=== PATIENT | female | born 1955 | race Caucasian/White ===

== ENCOUNTER 2024-07-26 18:23 | Inpatient (IN) | payer MEDICARE, OTHER ==
[~2024-07-26] VITALS: Ht 170.2 cm; Wt 59.0 kg
[2024-07-26] MEDS ORDERED: GLIM4TAB7 PO (19:07)
[2024-07-26] MEDS ORDERED: ATOR20TA PO (19:07)
[2024-07-26] MEDS ORDERED: PIOG15TA8 PO (19:07)
[2024-07-26] MEDS ORDERED: GABA-530 PO (19:07)
[2024-07-26] MEDS ORDERED: LOSA-415 PO (19:07)
[2024-07-26] MEDS ORDERED: HYDR-3686 PO (19:07)
[2024-07-26] MEDS ORDERED: MONT-40 PO (19:07)
[2024-07-26] MEDS ORDERED: FERR325T28 PO (19:07)
[2024-07-26] MEDS ORDERED: SUMA25TA35 PO (19:07)
[2024-07-26] MEDS ORDERED: METF-436 PO (19:07)
[2024-07-26] MEDS ORDERED: FAMO20TA8 PO (19:07)
[2024-07-26] MEDS ORDERED: MELO-102 PO (19:07)
[2024-07-26] MEDS: normal saline 1000ml 1,000 ML IV ONE (19:15)
[2024-07-26 19:16] LABS: BASOPHILS % (AUTO) 0.3 % (0-1); EOSINOPHILS # (AUTO) 0.1 X10'3 (0-0.9); HEMATOCRIT 24.8 % (35.0-45.0); HEMOGLOBIN 8.3 g/dl (12.0-16.0); LYMPHOCYTES # (AUTO) 4.1 X10'3 (1.1-4.8); LYMPHOCYTES % (AUTO) 35.3 % (21-51); MEAN CORPUSCULAR HGB CONC 33.3 g/dL (33.0-36.5); MEAN CORPUSCULAR VOLUME 90.2 FL (78-98); MEAN PLATELET VOLUME 9.2 FL (7.4-10.4); MONOCYTES # (AUTO) 1.4 X10'3 (0-0.9); MONOCYTES % (AUTO) 12.4 % (2-12); NEUTROPHILS # (AUTO) 5.9 X10'3 (1.8-7.7); PLATELET COUNT 238 X10'3 (140-440); RED BLOOD COUNT 2.75 X10'6 (4.20-5.60); RED CELL DISTRIBUTION WIDTH 14.4 % (11.5-14.5); WHITE BLOOD COUNT 11.6 X10'3 (4.5-11.0)
[2024-07-26 19:24] LABS: INR 1.1 INR; PROTHROMBIN TIME 11.3 SECONDS (9.0-12.0)
[2024-07-26 19:28] LABS: ALANINE AMINOTRANSFERASE 22 U/L (12-78); ALBUMIN 2.9 G/DL (3.4-5.0); ALBUMIN/GLOBULIN RATIO 1.3 (1.1-1.5); ALKALINE PHOSPHATASE 48 IU/L (46-116); ANION GAP 9 (8-16); ASPARTATE AMINO TRANSFERASE 17 U/L (10-37); BILIRUBIN,TOTAL 0.7 MG/DL (0.1-1.0); BLOOD UREA NITROGEN 47 MG/DL (7-18); BUN/CREATININE RATIO 68.1 (10.0-20.0); CALCIUM 8.5 MG/DL (8.5-10.1); CHLORIDE 105 MMOL/L (99-107); CREATININE 0.69 MG/DL (0.40-0.90); GLUCOSE 160 MG/DL (70-104); POTASSIUM 3.8 MMOL/L (3.5-5.1); SODIUM 138 MMOL/L (135-145); TOTAL CARBON DIOXIDE 24.3 MMOL/L (24-32); TOTAL PROTEIN 5.2 G/DL (6.4-8.2); eCRCL 73 ML/MIN; eGFR 85 ML/MIN
[2024-07-26 19:40] LABS: PRO BRAIN NATRIURETIC PEPTIDE 109 PG/ML (0-125)
[2024-07-26] MEDS ORDERED: hydrOXYzine 25 MG tablet PO PRN (21:55)
[2024-07-26] MEDS ORDERED: SUMAtriptan 25 MG tablet PO PRN (21:55)
[2024-07-26] MEDS ORDERED: mag hydrox/Alum hydrox/simeth 30ml oral suspension PO PRN (22:00)
[2024-07-26] MEDS ORDERED: ondansetron/PF 4mg/2ml inj IV PRN (22:00)
[2024-07-26] MEDS ORDERED: glucagon, human recombinant 1mg kit SUBCUT PRN (22:00)
[2024-07-26] MEDS ORDERED: potassium Cl 20 mEq SR tablet PO PRN ×2 (22:00)
[2024-07-26] MEDS ORDERED: magnesium sulf-water 4G/100mL 100 ML IV PRN (22:00)
[2024-07-26] MEDS ORDERED: DEXTROSE 15 GM of carb/4 tabs (each vial/BOTTLE has 4 tablets) PO PRN ×2 (22:00)
[2024-07-26] MEDS ORDERED: magnesium hydroxide 30ml (MOM) UD suspension PO PRN (22:00)
[2024-07-26] MEDS ORDERED: potassium Cl 40MEQ/1/2NS 520ml 520 ML IV PRN (22:00)
[2024-07-26] MEDS ORDERED: pantoprazole 40mg IV 80 MG in normal saline 100ml IV soln 100 ML IV ONE (22:00)
[2024-07-26] MEDS ORDERED: dextrose 50%-water 50ml dispensing syringe IV PRN ×2 (22:00)
[2024-07-26] MEDS ORDERED: magnesium sulf-water 2g/50mL 50 ML IV PRN (22:00)
[2024-07-26 22:22] LABS: HEMOGLOBIN A1C 6.9 % (4.5-6.2)
[2024-07-26 22:23] LABS: HEMOGLOBIN 7.2 g/dl (12.0-16.0); MEAN CORPUSCULAR HEMOGLOBIN 30.4 PG (27.0-31.0); MEAN CORPUSCULAR HGB CONC 34.1 g/dL (33.0-36.5); MEAN PLATELET VOLUME 8.4 FL (7.4-10.4); PLATELET COUNT 199 X10'3 (140-440); RED BLOOD COUNT 2.37 X10'6 (4.20-5.60); RED CELL DISTRIBUTION WIDTH 14.3 % (11.5-14.5); WHITE BLOOD COUNT 11.4 X10'3 (4.5-11.0)
[2024-07-26 22:33] LABS: HEMATOCRIT 21.1 % (35.0-45.0)
[2024-07-26 22:50] LABS: % IRON SATURATION 97 % (11-46); IRON 142 UG/DL (49-151); TOTAL IRON BINDING CAPACITY 147 UG/DL (259-388)
[2024-07-26 23:00] VITALS: BP 124/73; PULSE 79; RESP 17; RESP 18; TEMP 98; O2SAT 98; O2SAT 99
[2024-07-26] MEDS: pantoprazole 40 MG vial IV ONE (23:20)
[2024-07-26] MEDS: normal saline 1000ml 1,000 ML IV SCH (23:20)
[2024-07-26] MEDS: pantoprazole 40MG/NS 100ML BAG 100 ML IV SCH (23:21)
[2024-07-27] VITALS (8 sets, daily range): BP systolic 110–144; BP diastolic 56–75; PULSE 65–82; RESP 15–22; TEMP 97–99.3; O2SAT 94–100
[2024-07-27] MEDS ORDERED: GLIP10TA18 PO (01:55)
[2024-07-27 03:40] LABS: BASOPHILS % (AUTO) 0.5 % (0-1); EOSINOPHILS # (AUTO) 0.2 X10'3 (0-0.9); EOSINOPHILS % (AUTO) 2.1 % (0-6); LYMPHOCYTES # (AUTO) 4.2 X10'3 (1.1-4.8); LYMPHOCYTES % (AUTO) 42.4 % (21-51); MEAN CORPUSCULAR HEMOGLOBIN 31.2 PG (27.0-31.0); MEAN CORPUSCULAR HGB CONC 34.7 g/dL (33.0-36.5); MEAN CORPUSCULAR VOLUME 89.7 FL (78-98); MEAN PLATELET VOLUME 8.9 FL (7.4-10.4); MONOCYTES # (AUTO) 1.2 X10'3 (0-0.9); MONOCYTES % (AUTO) 11.5 % (2-12); NEUTROPHILS # (AUTO) 4.4 X10'3 (1.8-7.7); NEUTROPHILS % (AUTO) 43.5 % (42-75); PLATELET COUNT 187 X10'3 (140-440); RED BLOOD COUNT 2.26 X10'6 (4.20-5.60); RED CELL DISTRIBUTION WIDTH 14.8 % (11.5-14.5)
[2024-07-27 03:42] LABS: HEMATOCRIT 20.3 % (35.0-45.0)
[2024-07-27 03:55] LABS: ALANINE AMINOTRANSFERASE 17 U/L (12-78); ALBUMIN 2.3 G/DL (3.4-5.0); ALKALINE PHOSPHATASE 38 IU/L (46-116); ANION GAP 6 (8-16); ASPARTATE AMINO TRANSFERASE 15 U/L (10-37); BILIRUBIN,TOTAL 0.4 MG/DL (0.1-1.0); BLOOD UREA NITROGEN 39 MG/DL (7-18); BUN/CREATININE RATIO 51.3 (10.0-20.0); CALCIUM 7.7 MG/DL (8.5-10.1); CHLORIDE 108 MMOL/L (99-107); CREATININE 0.76 MG/DL (0.40-0.90); GLUCOSE 245 MG/DL (70-104); MAGNESIUM 1.4 MG/DL (1.5-2.4); POTASSIUM 3.9 MMOL/L (3.5-5.1); SODIUM 138 MMOL/L (135-145); TOTAL CARBON DIOXIDE 24.5 MMOL/L (24-32); TOTAL PROTEIN 4.7 G/DL (6.4-8.2); eCRCL 66 ML/MIN; eGFR 76 ML/MIN
[2024-07-27 07:24] LABS: HEMOGLOBIN 7.4 g/dl (12.0-16.0); MEAN CORPUSCULAR HEMOGLOBIN 30.4 PG (27.0-31.0); MEAN CORPUSCULAR HGB CONC 34.1 g/dL (33.0-36.5); MEAN CORPUSCULAR VOLUME 89.3 FL (78-98); MEAN PLATELET VOLUME 9.3 FL (7.4-10.4); PLATELET COUNT 231 X10'3 (140-440); RED BLOOD COUNT 2.43 X10'6 (4.20-5.60); RED CELL DISTRIBUTION WIDTH 14.3 % (11.5-14.5); WHITE BLOOD COUNT 11.8 X10'3 (4.5-11.0)
[2024-07-27 07:35] LABS: HEMATOCRIT 21.7 % (35.0-45.0)
[2024-07-27] MEDS: K and/or MAG REPLACEMENT MC SCH (08:00)
[2024-07-27] MEDS: famotidine 20mg tablet PO SCH (09:47)
[2024-07-27] MEDS: atorvastatin 20mg tablet PO SCH (09:47)
[2024-07-27] MEDS: gabapentin 100mg capsule PO SCH (09:47)
[2024-07-27] MEDS: docusate sod 100mg capsule PO SCH (09:47)
[2024-07-27] MEDS: losartan 50mg tablet PO SCH (09:47)
[2024-07-27] MEDS: montelukast 10mg tablet PO SCH (09:47)
[2024-07-27] MEDS: ferrous sulfate 325mg tablet PO SCH (09:47)
[2024-07-27] MEDS: MELOXICAM 7.5 MG TABLET PO SCH (09:48)
[2024-07-27] MEDS: INSULIN LISPRO 100 UNIT/ML INSULN.PEN MULTI-DOSE SQ SCH (09:58)
[2024-07-27] MEDS: magnesium Cl slow-release 64mg tablet PO PRN (15:20)
[2024-07-27 19:32] LABS: HEMOGLOBIN 7.4 g/dl (12.0-16.0); MEAN CORPUSCULAR HEMOGLOBIN 30.9 PG (27.0-31.0); MEAN CORPUSCULAR HGB CONC 34.5 g/dL (33.0-36.5); MEAN CORPUSCULAR VOLUME 89.4 FL (78-98); PLATELET COUNT 240 X10'3 (140-440); RED BLOOD COUNT 2.41 X10'6 (4.20-5.60); RED CELL DISTRIBUTION WIDTH 14.6 % (11.5-14.5); WHITE BLOOD COUNT 14.1 X10'3 (4.5-11.0)
[2024-07-27 19:39] LABS: HEMATOCRIT 21.5 % (35.0-45.0)
[2024-07-27] MEDS: insulin glargine (Lantus) pen - multi-dose SQ SCH (22:07)
[2024-07-28] VITALS (21 sets, daily range): BP systolic 89–151; BP diastolic 42–109; PULSE 56–86; RESP 12–21; TEMP 97.5–98.7; O2SAT 91–100
[2024-07-28 06:00] LABS: BASOPHILS % (AUTO) 0.6 % (0-1); EOSINOPHILS # (AUTO) 0.7 X10'3 (0-0.9); LYMPHOCYTES # (AUTO) 3.1 X10'3 (1.1-4.8); MEAN CORPUSCULAR HEMOGLOBIN 31.1 PG (27.0-31.0); MEAN CORPUSCULAR HGB CONC 34.6 g/dL (33.0-36.5); MEAN CORPUSCULAR VOLUME 89.9 FL (78-98); MEAN PLATELET VOLUME 9.2 FL (7.4-10.4); MONOCYTES # (AUTO) 0.9 X10'3 (0-0.9); NEUTROPHILS # (AUTO) 3.6 X10'3 (1.8-7.7); NEUTROPHILS % (AUTO) 43.4 % (42-75); PLATELET COUNT 176 X10'3 (140-440); RED BLOOD COUNT 1.97 X10'6 (4.20-5.60); RED CELL DISTRIBUTION WIDTH 14.3 % (11.5-14.5); WHITE BLOOD COUNT 8.3 X10'3 (4.5-11.0)
[2024-07-28 06:05] LABS: HEMOGLOBIN 6.1 g/dl (12.0-16.0)
[2024-07-28 06:06] LABS: HEMATOCRIT 17.7 % (35.0-45.0)
[2024-07-28 06:17] LABS: ALANINE AMINOTRANSFERASE 21 U/L (12-78); ALBUMIN 2.5 G/DL (3.4-5.0); ALBUMIN/GLOBULIN RATIO 1.2 (1.1-1.5); ALKALINE PHOSPHATASE 40 IU/L (46-116); ANION GAP 6 (8-16); ASPARTATE AMINO TRANSFERASE 15 U/L (10-37); BILIRUBIN,TOTAL 0.3 MG/DL (0.1-1.0); BLOOD UREA NITROGEN 18 MG/DL (7-18); CALCIUM 7.8 MG/DL (8.5-10.1); CHLORIDE 111 MMOL/L (99-107); CREATININE 0.58 MG/DL (0.40-0.90); GLUCOSE 177 MG/DL (70-104); MAGNESIUM 1.8 MG/DL (1.5-2.4); POTASSIUM 4.1 MMOL/L (3.5-5.1); SODIUM 141 MMOL/L (135-145); TOTAL CARBON DIOXIDE 24.5 MMOL/L (24-32); TOTAL PROTEIN 4.6 G/DL (6.4-8.2); eCRCL 86 ML/MIN; eGFR > 90 ML/MIN
[2024-07-28] MEDS: acetaminophen 325mg tablet PO PRN (08:28)
[2024-07-28] MEDS ORDERED: LIDOcaine 2% Viscous 15ml cup ONE (10:42)
[2024-07-28] MEDS ORDERED: simethicone 40mg/0.6ml oral drops 30ml ONE (11:00)
[2024-07-28] MEDS ORDERED: MIDAZolam 1 MG/ML 5ML VIAL ONE ×2 (11:04→11:32)
[2024-07-28] MEDS ORDERED: fentaNYL/PF 50MCG/1 ML 2ML syringe ONE (11:04)
[2024-07-28] MEDS ORDERED: epiNEPHrine 0.1mg/ml 10ml syringe ONE (11:15)
[2024-07-28] MEDS ORDERED: glycopyrrolate 0.2mg/ml inj ONE (11:27)
[2024-07-28] MEDS ORDERED: ondansetron/PF 4mg/2ml inj ONE (11:49)
[2024-07-28 17:13] LABS: HEMOGLOBIN 9.2 g/dl (12.0-16.0); MEAN CORPUSCULAR HEMOGLOBIN 30.2 PG (27.0-31.0); MEAN CORPUSCULAR HGB CONC 34.1 g/dL (33.0-36.5); MEAN CORPUSCULAR VOLUME 88.6 FL (78-98); MEAN PLATELET VOLUME 9.3 FL (7.4-10.4); PLATELET COUNT 215 X10'3 (140-440); RED BLOOD COUNT 3.05 X10'6 (4.20-5.60); RED CELL DISTRIBUTION WIDTH 14.7 % (11.5-14.5); WHITE BLOOD COUNT 11.7 X10'3 (4.5-11.0)
[2024-07-28] MEDS: pantoprazole 40 MG vial IV SCH (19:35)
[2024-07-29 02:00] VITALS: BP 116/54; PULSE 65; RESP 14; TEMP 97.6; O2SAT 97
[2024-07-29 06:38] LABS: ALANINE AMINOTRANSFERASE 23 U/L (12-78); ALBUMIN 2.6 G/DL (3.4-5.0); ALBUMIN/GLOBULIN RATIO 1.1 (1.1-1.5); ALKALINE PHOSPHATASE 47 IU/L (46-116); ANION GAP 7 (8-16); ASPARTATE AMINO TRANSFERASE 16 U/L (10-37); BILIRUBIN,TOTAL 0.4 MG/DL (0.1-1.0); BLOOD UREA NITROGEN 10 MG/DL (7-18); BUN/CREATININE RATIO 15.4 (10.0-20.0); CALCIUM 7.7 MG/DL (8.5-10.1); CHLORIDE 110 MMOL/L (99-107); CREATININE 0.65 MG/DL (0.40-0.90); GLUCOSE 158 MG/DL (70-104); MAGNESIUM 1.7 MG/DL (1.5-2.4); POTASSIUM 3.7 MMOL/L (3.5-5.1); SODIUM 140 MMOL/L (135-145); TOTAL CARBON DIOXIDE 23.3 MMOL/L (24-32); TOTAL PROTEIN 4.9 G/DL (6.4-8.2); eCRCL 77 ML/MIN; eGFR > 90 ML/MIN
[2024-07-29 06:51] LABS: BASOPHILS % (AUTO) 0.5 % (0-1); EOSINOPHILS # (AUTO) 0.6 X10'3 (0-0.9); EOSINOPHILS % (AUTO) 6.5 % (0-6); HEMATOCRIT 26.1 % (35.0-45.0); LYMPHOCYTES # (AUTO) 2.9 X10'3 (1.1-4.8); LYMPHOCYTES % (AUTO) 34.3 % (21-51); MEAN CORPUSCULAR HEMOGLOBIN 30.4 PG (27.0-31.0); MEAN CORPUSCULAR HGB CONC 34.3 g/dL (33.0-36.5); MEAN CORPUSCULAR VOLUME 88.5 FL (78-98); MEAN PLATELET VOLUME 9.5 FL (7.4-10.4); MONOCYTES # (AUTO) 0.9 X10'3 (0-0.9); NEUTROPHILS # (AUTO) 4.2 X10'3 (1.8-7.7); NEUTROPHILS % (AUTO) 48.7 % (42-75); PLATELET COUNT 189 X10'3 (140-440); RED BLOOD COUNT 2.95 X10'6 (4.20-5.60); RED CELL DISTRIBUTION WIDTH 14.6 % (11.5-14.5); WHITE BLOOD COUNT 8.6 X10'3 (4.5-11.0)
[2024-07-29 09:50] VITALS: BP_SYST 131
[2024-07-29] MEDS ORDERED: PANT40TA54 PO (11:39)
[2024-07-29] MEDS ORDERED: FERR324T4 PO (14:48)
== END 2024-07-29 16:32 | disposition home or self-care (01) | DRG 377 ==
LOC: ER 18:24 → ED HOLD 19:30 → PCU 3S 22:53
PROVIDERS: ADMIT Internal Medicine Critical Care Medicine; ATTEND Internal Medicine
PROC: 3E0G8GC Introduction of Other Therapeutic Substance into Upper GI, Via Natural or Artificial Opening Endoscopic (ICD-10-PCS; principal; 2024-07-28)
PROC: 0DB78ZX Excision of Stomach, Pylorus, Via Natural or Artificial Opening Endoscopic, Diagnostic (ICD-10-PCS; 2024-07-28)
PROC: 0W3P8ZZ Control Bleeding in Gastrointestinal Tract, Via Natural or Artificial Opening Endoscopic (ICD-10-PCS; 2024-07-28)
PROC: 30233N1 Transfusion of Nonautologous Red Blood Cells into Peripheral Vein, Percutaneous Approach (ICD-10-PCS; 2024-07-28)
DX: K26.4 Chronic or unspecified duodenal ulcer with hemorrhage (principal); R57.1 Hypovolemic shock; D62 Acute posthemorrhagic anemia; F41.9 Anxiety disorder, unspecified; I10 Essential (primary) hypertension; E11.9 Type 2 diabetes mellitus without complications; E88.09 Other disorders of plasma-protein metabolism, not elsewhere classified; G43.809 Other migraine, not intractable, without status migrainosus; Z88.1 Allergy status to other antibiotic agents; Z79.899 Other long term (current) drug therapy; Z79.84 Long term (current) use of oral hypoglycemic drugs; Z88.8 Allergy status to other drugs, medicaments and biological substances; T39.395A Adverse effect of other nonsteroidal anti-inflammatory drugs [NSAID], initial encounter; Y92.9 Unspecified place or not applicable
CPT/HCPCS: 36415; 36430; 43255; 71045; 80053; 82728; 82948; 83036; 83540; 83550; 83605; 83735; 83880; 84145; 84484; 85025; 85027; 85610; 86885; 86900; 86901; 86920; 87081; 88305; 88342; 93005; 93306; 99152; 99153; 99291; A4620; G0378; J0171; J2250; J2405; J2470; J3010; J3490; J7030; J7040; P9016